=== PATIENT | male | born 1980 | race Caucasian/White ===

== ENCOUNTER 2018-03-11 22:45 | Emergency (ER) | payer BC, SELFPAY ==
[2018-03-11 22:52] VITALS: BP 127/85; PULSE 118; RESP 16; TEMP 37.1; O2SAT 100; BMI 28.3
--- NOTE | 2018-03-12 00:16 | PC.NURSE ---
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
[2018-03-12 00:17] LABS: Add Manual Diff / Slide Review NO; Basophils Percent Auto 0.3 % (0-2); Eosinophils Percent Auto 0.1 % (2-4); Hematocrit 46.4 % (41-53); Hemoglobin 16.3 g/dL (13.5-17.5); Lymphocytes Percent Auto 15.7 % (25-40); Mean Corpuscular HGB Conc 35.1 % (30-36); Mean Corpuscular Hemoglobin 31.8 PG (26-34); Mean Corpuscular Volume 90.4 fL (80-100); Neutrophils Absolute Auto 9100 /uL (3000-5900); Neutrophils Percent Auto 77.9 % (50-75); Platelet Count 315 X10^3/uL (150-400); Red Blood Cell Count 5.13 X10^6/uL (4.5-5.9); Red Cell Distribution Width 13.1 % (11.6-14.8); White Blood Cell Count 11.6 X10^3/uL (4.5-11.0)
[2018-03-12 00:42] LABS: Procalcitonin 0.16 ng/mL (<0.5)
[2018-03-12 00:53] LABS: Alanine Aminotransferase 34 IU/L (21-72); Albumin 4.4 g/dL (3.5-5.0); Albumin Globulin Ratio 1.4 (1.0-2.8); Alkaline Phosphatase 107 U/L (38-126); Aspartate Aminotransferase 19 IU/L (17-59); BUN Creatinine Ratio 21.1 (6-22); Bilirubin Total 1.7 mg/dL (0.2-1.3); Blood Urea Nitrogen 19 mg/dL (9-20); Calcium 9.2 mg/dL (8.4-10.2); Carbon Dioxide 19 mmol/L (22-32); Chloride 93 mmol/L (98-107); Estimated Glomerular Filt Rate > 60.0 mL/min (>60); Globulin 3.2 g/dL (1.7-4.1); Glucose 338 mg/dL (70-100); HEMOLYSIS < 15 (0-50); Potassium 4.4 mmol/L (3.4-5.1); Sodium 134 mmol/L (137-145); Total Protein 7.6 g/dL (6.3-8.2)
[2018-03-12 00:55] LABS: Lactate (Lactic Acid) 1.6 mmol/L (0.7-2.1)
[2018-03-12 00:56] LABS: Ketones (Beta-Hydroxybutyrate) 5.47 mmol/L (<0.27)
[2018-03-12 01:09] LABS: HCO3 VBG 20 mmol/L (24-28); PCO2 VBG 39.8 mmHg (45-50); PO2 VBG 35 mmHg (35-45); Total CO2 VBG 21 mmol/L (24-29); pH VBG 7.31 (7.31-7.41)
[2018-03-12 01:10] LABS: Oxygen Saturation VBG 62 % (70-75)
[2018-03-12 01:26] VITALS: BP 130/84; PULSE 103; RESP 18; O2SAT 99
[2018-03-12] MEDS: SODIUM CHLORIDE 0.9% 1,000 ML 1000 ML IV (01:33)
[2018-03-12] MEDS: INSULIN REGULAR 100 UNIT/ML 3 ML VIAL 6 UNIT IV (01:33)
[2018-03-12 02:49] VITALS: BP 119/78; PULSE 97; RESP 17; O2SAT 100
--- NOTE | 2018-03-12 02:52 | ED.GENADULT ---
HPI - General Adult General Chief complaint: Diabetic Problem Stated complaint: KETOACIDOSIS History of Present Illness HPI narrative: HPI 37-year-old male with DM I presents complaining of nausea, vomiting, abdominal discomfort, elevated blood glucose with concern for DKA. Patient denies chest pain, dysuria, urinary frequency, fevers, chills, diarrhea. States that he has been compliant with his insulin. Notes that he has had multiple prior episodes of DKA without identifiable triggers other than in onset of nausea and vomiting without identifiable trigger, nausea and vomiting then becomes a self reinforcing cycle leading to DKA. Patient dates today's presentation is identical to prior presentations. M/S/F/SocHx notable for: please see HPI; remainder reviewed with patient and in chart. ROS: Negative constitutional, eye, cardiovascular, pulmonary, GI, , MSK, skin, neurologic, psychiatric, endocrine unless noted in the HPI. Exam Gen: pleasant, appears moderately comfortable, not an extremis. HEENT: NC, AT, PEERL, EOMI. Resp: Clear to auscultation bilaterally, normal work of breathing, no accessory muscle usage. Card: Regular rate and rhythm with no murmurs, rubs, or gallops, extremities warm and well perfused. GI: Non-tender to palpation throughout all quadrants, no focal tenderness at McBurney's point, negative Robles's sign, non-distended, no rebound or guarding. : No suprapubic tenderness to palpation. MSK: No visible deformities, strength and tone without visually appreciable deficit. Skin: Normal color with no visible lesions. Neuro: AO x 3, no facial asymmetry, vision and hearing WNL. Psych: Mood and affect appropriate. Labs / Imaging: VBG - pH 7.308, PCO2 39.8, PO2 35, bicarbonate 19.9 EKG: SR 101 bpm, no ST segment elevations or depressions, no LBBB. WBC 11.6, HB 16.3, sodium 134, potassium 4.4, glucose 338, lactic 1.6, Procalcitonin 0.16 MDM Previous chart, nursing note, labs, imaging, and vitals reviewed. A: 37-year-old male with DM I presents complaining of nausea, vomiting, abdominal discomfort, elevated blood glucose with concern for DKA. DDx: DKA, HHS, dehydration, hypoglycemia, gastroenteritis Evaluation: patient does not meet DKA criteria. No evidence of HHS. Electrolytes within acceptable limits. History and exam without evidence of active infectious process other than possible gastroenteritis given the patient's nausea and vomiting. However this appears to fully resolve by the time of his ED presentation and the patient slept comfortably throughout most of his ED course. ED Course: 1 L normal saline, 10 mg Reglan, and 6 units regular insulin ordered. Patient able to take PO. Repeat POC glucose 219. Disposition: discharged with instructions to resume home insulin. Impression: hyperglycemia (please reference below for remainder of encounter information) Related Data Home Medications Medication Instructions Recorded Confirmed atorvastatin 40 mg PO DAILY 03/11/18 03/11/18 insulin glargine [Lantus Solostar 40 unit SUB-Q BEDTIME 03/11/18 03/11/18 U-100 Insulin] insulin lispro protamin-lispro 30 unit SUB-Q DAILY 03/11/18 03/11/18 [Humalog Mix 50-50 Insuln U-100] Allergies Allergy/AdvReac Type Severity Reaction Status Date / Time clindamycin Allergy Hives Verified 03/11/18 22:57 Penicillins Allergy Verified 03/11/18 22:57 [facility] Social History Smoking Status: Never smoker Exam Initial Vital Signs Initial Vital Signs: Vital Signs Temperature 98.8 F 03/11/18 22:52 Pulse Rate 118 H 03/11/18 22:52 Respiratory Rate 16 03/11/18 22:52 Blood Pressure 127/85 H 03/11/18 22:52 Pulse Oximetry 100 03/11/18 22:52 Course Orders Ordered: ED Orders 03/12/18 00:01 Complete Blood Count AUTO DIFF Stat Procalcitonin Stat 03/12/18 00:09 EKG-12 Lead Stat 03/12/18 00:16 Comprehensive Metabolic Panel Stat Ketones (Beta-Hydroxybutyrate) Stat Lactate (Lactic Acid) Stat 03/12/18 00:30 Blood Culture Stat 03/12/18 00:31 Venous Blood Gas Stat Discontinued Medications Sodium Chloride (Normal Saline 0.9%) 1,000 mls @ 1,000 mls/hr IV BOLUS ONE Stop: 03/12/18 01:08 Last Admin: 03/12/18 01:33 Dose: 1,000 mls/hr Insulin Human Regular (Humulin R) 6 unit IV NOW ONE Stop: 03/12/18 00:58 Last Admin: 03/12/18 01:33 Dose: 6 unit Metoclopramide HCl (Reglan) 10 mg IV NOW ONE Stop: 03/12/18 00:59 Vital Signs - 8 hr 03/11/18 22:52 03/12/18 01:26 03/12/18 02:49 Temperature 98.8 F Pulse Rate 118 H 103 H 97 H Respiratory Rate 16 18 17 Blood Pressure 127/85 H Blood Pressure [Left Arm] 130/84 H 119/78 Pulse Oximetry 100 99 100 Medical Decision Making Lab Data Result diagrams: 03/12/18 00:01 03/12/18 00:16 Lab Results 03/12/18 03/12/18 03/12/18 Range/Units 00:01 00:01 00:16 WBC 11.6 H (4.5-11.0) X10^3/uL RBC 5.13 (4.5-5.9) X10^6/uL Hgb 16.3 (13.5-17.5) g/dL Hct 46.4 (41-53) % MCV 90.4 (80-100) fL MCH 31.8 (26-34) PG MCHC 35.1 (30-36) % RDW 13.1 (11.6-14.8) % Plt Count 315 (150-400) X10^3/uL Neut % (Auto) 77.9 H (50-75) % Lymph % (Auto) 15.7 L (25-40) % Dewitt % (Auto) 6.0 (3-14) % Eos % (Auto) 0.1 L (2-4) % Baso % (Auto) 0.3 (0-2) % Neut # (Auto) 9100 H (2010-3039) /uL VBG pH (7.31-7.41) VBG pCO2 (45-50) mmHg VBG pO2 (35-45) mmHg VBG HCO3 (24-28) mmol/L VBG Total CO2 (24-29) mmol/L VBG O2 Saturation (70-75) % VBG Base Excess (0-4) mmol/L Sodium 134 L (137-145) mmol/L Potassium 4.4 (3.4-5.1) mmol/L Chloride 93 L (98-107) mmol/L Carbon Dioxide 19 L (22-32) mmol/L BUN 19 (9-20) mg/dL Creatinine 0.90 (0.66-1.25) mg/dL Estimated GFR > 60.0 (>60) mL/min BUN/Creatinine Ratio 21.1 (6-22) Glucose 338 H (70-100) mg/dL Lactate (0.7-2.1) mmol/L Calcium 9.2 (8.4-10.2) mg/dL Total Bilirubin 1.7 H (0.2-1.3) mg/dL AST 19 (17-59) IU/L ALT 34 (21-72) IU/L Alkaline Phosphatase 107 (38-126) U/L Total Protein 7.6 (6.3-8.2) g/dL Albumin 4.4 (3.5-5.0) g/dL Globulin 3.2 (1.7-4.1) g/dL Albumin/Globulin Ratio 1.4 (1.0-2.8) Procalcitonin 0.16 (<0.5) ng/mL Ketones 5.47 H (<0.27) mmol/L 03/12/18 03/12/18 Range/Units 00:16 00:31 WBC (4.5-11.0) X10^3/uL RBC (4.5-5.9) X10^6/uL Hgb (13.5-17.5) g/dL Hct (41-53) % MCV (80-100) fL MCH (26-34) PG MCHC (30-36) % RDW (11.6-14.8) % Plt Count (150-400) X10^3/uL Neut % (Auto) (50-75) % Lymph % (Auto) (25-40) % Dewitt % (Auto) (3-14) % Eos % (Auto) (2-4) % Baso % (Auto) (0-2) % Neut # (Auto) (0995-6638) /uL VBG pH 7.31 (7.31-7.41) VBG pCO2 39.8 L (45-50) mmHg VBG pO2 35 (35-45) mmHg VBG HCO3 20 L (24-28) mmol/L VBG Total CO2 21 L (24-29) mmol/L VBG O2 Saturation 62 L (70-75) % VBG Base Excess -6.0 L (0-4) mmol/L Sodium (137-145) mmol/L Potassium (3.4-5.1) mmol/L Chloride (98-107) mmol/L Carbon Dioxide (22-32) mmol/L BUN (9-20) mg/dL Creatinine (0.66-1.25) mg/dL Estimated GFR (>60) mL/min BUN/Creatinine Ratio (6-22) Glucose (70-100) mg/dL Lactate 1.6 (0.7-2.1) mmol/L Calcium (8.4-10.2) mg/dL Total Bilirubin (0.2-1.3) mg/dL AST (17-59) IU/L ALT (21-72) IU/L Alkaline Phosphatase (38-126) U/L Total Protein (6.3-8.2) g/dL Albumin (3.5-5.0) g/dL Globulin (1.7-4.1) g/dL Albumin/Globulin Ratio (1.0-2.8) Procalcitonin (<0.5) ng/mL Ketones (<0.27) mmol/L Discharge Plan Departure Prescriptions: No Action atorvastatin 40 mg Tablet 40 mg PO DAILY RF: 0 insulin lispro protamin-lispro [Humalog Mix 50-50 Insuln U-100] 100 unit/mL (50-50) Suspension 30 unit SUB-Q DAILY RF: 0 insulin glargine [Lantus Solostar U-100 Insulin] 100 unit/mL (3 mL) Insulin Pen 40 unit SUB-Q BEDTIME RF: 0
[2018-03-12 03:47] VITALS: BP 125/71; PULSE 95; RESP 20; TEMP 36.7; O2SAT 100
== END 2018-03-12 03:49 | disposition home or self-care (01) ==
PROVIDERS: Emergency Provider Emergency Medicine
DX: R73.9 Hyperglycemia, unspecified (principal)
CPT/HCPCS: 36415; 36591; 80053; 82009; 82805; 82962; 83605; 84145; 85025; 87040; 93005; 93010; 96361; 96374; 96375; 99283; 99284